=== PATIENT | female | born 1995 | race Caucasian/White ===

== ENCOUNTER 2016-11-26 10:35 | Inpatient (IN) | payer OTHER ==
[2016-11-26 14:21] VITALS: BMI 26.3
[2016-11-26 14:39] LABS: BASOPHIL 0.5 % (0-2.0); EOSINOPHIL 0.2 % (0-4.5); MCHC 33.1 g/dl (32.0-36.0); MEAN CELL VOLUME 84.5 fl (80-96); MEAN PLT VOLUME 10.4 fl (7.5-11.1); NEUTROPHILS 76.6 % (42.8-82.8); PLATELET COUNT 320 K/MM3 (134-434); RDW 14.8 % (11.6-15.6); WHITE BLOOD COUNT 13.5 K/mm3 (4.0-10.0)
[2016-11-26 14:56] LABS: INR 0.92 (0.82-1.09); PROTHROMBIN TIME (PATIENT) 10.1 SEC (9.98-11.88)
[2016-11-26 14:58] LABS: ACTIVATED PTT 25.9 SECONDS (26.9-34.4)
[2016-11-26 15:10] LABS: CALCIUM 9.2 mg/dL (8.5-10.1); COCKROFT - GAULT 181.9765; CREATININE 0.5 mg/dL (0.55-1.02)
--- NOTE | 2016-11-26 15:23 | HP ---
Past Medical History - Primary Care Physician PCP:: Andrew Weller - Admission Chief Complaint: 39 weeks, rom History of Present Illness: 21 yo f p0 wdc by mark 12/02/16 39.1 weeks. care at [facility] in [place], c/o leakage of fluid since 930am today, clear fluid, no fever, no chills, no bleeding, cx 1 cm 80 vx -2 mr , fhr cat 1, contraction q 2 to 3 min History Source: Patient Limitations to Obtaining History: No Limitations - Past Medical History ...: 1 ...Para: 0 ...Term: 0 ...: 0 ...Spon : 0 ...Induced : 0 ...Multiple Gestation: 0 ...LMP: 04/20/16 ... Weeks Gestation by Dates: 39.1 ...EDC by Dates: 12/02/16 - Past Surgical History Hx Myomectomy: No Hx Transabdominal Cerclage: No - Smoking History Smoking history: Never smoked Have you smoked in the past 12 months: No - Alcohol/Substance Use Hx Alcohol Use: No - Social History History of Recent Travel: No Home Medications - Allergies Allergies/Adverse Reactions: Allergies Allergy/AdvReac Type Severity Reaction Status Date / Time No Known Allergies Allergy Verified 11/26/16 15:10 - Home Medications Home Medications: Ambulatory Orders Vits #93/Iron Fum/FA [ Formula Tablet] 1 each PO DAILY Review of Systems - Review of Systems Constitutional: reports: No Symptoms Eyes: reports: No Symptoms HENT: reports: No Symptoms Neck: reports: No Symptoms Cardiovascular: reports: No Symptoms Respiratory: reports: No Symptoms Gastrointestinal: reports: No Symptoms Genitourinary: reports: No Symptoms Breasts: reports: No Symptoms Reported Musculoskeletal: reports: No Symptoms Integumentary: reports: No Symptoms Neurological: reports: No Symptoms Endocrine: reports: No Symptoms Hematology/Lymphatic: reports: No Symptoms Psychiatric: reports: No Symptoms Physical Exam - Maternity Vital Signs: Vital Signs Temperature 97.9 F 11/26/16 14:03 Pulse Rate 95 H 11/26/16 14:03 Respiratory Rate 20 11/26/16 14:03 Blood Pressure 129/70 11/26/16 14:03 O2 Sat by Pulse Oximetry (%) Constitutional: Yes: Well Nourished, No Distress, Calm Eyes: Yes: WNL, Conjunctiva Clear, EOM Intact HENT: Yes: WNL, Atraumatic, Normocephalic Neck: Yes: WNL, Supple, Trachea Midline Cardiovascular: Yes: WNL, Regular Rate and Rhythm Breast(s): Yes: WNL - Abdominal Exam/OB Fundal Height: 40 Number of Fetuses: Single Presentation: Vertex Contractions: Yes Regularity: Regular Intensity: Mod/Strong Monitor Mode: External Heart Rate Location: [facility] Category: I Accelerations: Uniform Decelerations: None - Vaginal Exam/OB Vaginal Bleediing: No Speculum Exam: Yes Dilatation (cm): 1 cm Effacement (%): 80 Amniotic Membrane Status: Ruptured Nitrazine Test: Positive Presentation: Vertex/Position Station: -2 - Physical Exam Musculoskeletal: Yes: Back Pain Deep Tendon Reflex Grade: Normal +2 Psychiatric: Yes: WNL - Labs Lab Results: CBC, BMP 11/26/16 14:28 11/26/16 14:28 Hemorrhage Risk Assessment - Risk Factors Risk Score: 0 Risk Level: Low Risk Problem List - Problems (1) with 39 completed weeks gestation Code(s): Z3A.39 - 39 WEEKS GESTATION OF (2) membrane rupture Code(s): BJK3279 - (3) Labor established Code(s): [id number] - Assessment/Plan admit, heart monitoring , GBS negative .pitocin rba explained , if contraction are not regular
[2016-11-26] MEDS ORDERED: BUTORPHANOL TARTRATE 1 MG/ML VIAL IVPUSH ONE (15:35)
[2016-11-26] MEDS ORDERED: OXYTOCIN 15 UNITS/ LR 250 ML 250 ML IVPB SCH (15:45)
[2016-11-26] MEDS ORDERED: DEXTROSE 5%-LACTATED RINGERS 1,000 ML IV SCH ×2 (17:15→22:30)
--- NOTE | 2016-11-26 19:50 | PN ---
Progress Note (short form) - Note Progress Note: cx 1 cm post , vx -3 mr, fhr act 1 with variable decel with contraction Problem List - Problems (1) with 39 completed weeks gestation Code(s): Z3A.39 - 39 WEEKS GESTATION OF (2) membrane rupture Code(s): KLA5919 - (3) Labor established Code(s): ESY9170 -
--- NOTE | 2016-11-26 21:22 | PN ---
Progress Note (short form) - Note Progress Note: cx 1 cm post -3 , contraction regular, no dilation, head high advised c/s rba discussed Problem List - Problems (1) with 39 completed weeks gestation Code(s): Z3A.39 - 39 WEEKS GESTATION OF (2) membrane rupture Code(s): [id number] - (3) Labor established Code(s): [id number] -
[2016-11-26] MEDS ORDERED: BENZOCAINE 28 GM HEMORRHOIDAL OINTMENT PR PRN (22:21)
[2016-11-26] MEDS ORDERED: METHYLERGONOVINE MALEATE 0.2 MG/1 ML AMP IM PRN (22:21)
[2016-11-26] MEDS ORDERED: diphenhydrAMINE HCL 25 MG CAPSULE (FP) PO PRN (22:21)
[2016-11-26] MEDS ORDERED: WITCH HAZEL 50% (TUCKS) 40 PAD/JAR PAD TP PRN (22:21)
[2016-11-26] MEDS ORDERED: BENZOCAINE 20% 57 GM BOTTLE TP PRN (22:21)
[2016-11-26] MEDS ORDERED: OXYTOCIN 20 UNITS in 0.9% NS 1,000 ML IV SCH (22:30)
[2016-11-26] MEDS ORDERED: ONDANSETRON 4 MG/2 ML VIAL IVPB PRN (22:39)
[2016-11-27] MEDS: CEFAZOLIN (PRE-DOCKED) 50 ML IVPB SCH ×2 (02:00→09:20)
[2016-11-27] MEDS ORDERED: OXYTOCIN 20 UNITS in 0.9% NS 1,000 ML IV ONE (02:00)
[2016-11-27] MEDS: IBUPROFEN 800 MG/8 ML IJ IVPB PRN ×2 (03:00→11:38)
[2016-11-27 07:30] LABS: BASOPHIL 0.2 % (0-2.0); EOSINOPHIL 0.1 % (0-4.5); MCH 27.8 pg (25.7-33.7); MCHC 32.6 g/dl (32.0-36.0); MEAN CELL VOLUME 85.3 fl (80-96); MEAN PLT VOLUME 10.4 fl (7.5-11.1); NEUTROPHILS 75.8 % (42.8-82.8); PLATELET COUNT 249 K/MM3 (134-434); RDW 14.8 % (11.6-15.6); WHITE BLOOD COUNT 15.3 K/mm3 (4.0-10.0)
--- NOTE | 2016-11-27 08:36 | PN ---
Progress Note, Physician Chief Complaint: Pt. still in bed with boston in place. Pain controlled, no MOLINA. No anesthesia complaints. - Current Medication List Current Medications: Active Medications Acetaminophen (Tylenol -) 650 mg PO Q4H PRN PRN Reason: FEVER OR PAIN Benzocaine (Americaine Ointment -) 1 applic RI PRN PRN PRN Reason: PAIN Benzocaine (Americaine 20% [place] -) 1 spray TP PRN PRN PRN Reason: PAIN Bisacodyl (Dulcolax Suppository -) 10 mg RC PRN PRN PRN Reason: CONSTIPATION Diphenhydramine HCl (Benadryl -) 25 mg PO Q8H PRN PRN Reason: FOR ITCHING Diphenhydramine HCl (Benadryl Injection -) 25 mg IVPUSH Q4H PRN PRN Reason: Pruritis Oxytocin/Lactated Ringer's (Lactated Ringer+ 15 Units Pitocin) 250 mls @ 1 mls/ hr IVPB ASDIR HEIDI; 0.06 UNIT/HR PRN Reason: Protocol Last Titration: 11/26/16 20:30 Dose: 0 unit/hr Dextrose/Lactated Ringer's (D5-Lr -) 1,000 mls @ 125 mls/hr IV ASDIR HEIDI Last Admin: 11/26/16 15:45 Dose: 125 mls/hr Cefazolin Sodium (Ancef 1gm Ivpb (Pre-Docked)) 50 mls @ 100 mls/hr IVPB Q8H-IV HEIDI Stop: 11/27/16 10:29 Last Admin: 11/27/16 02:00 Dose: 100 mls/hr Dextrose/Lactated Ringer's (D5-Lr -) 1,000 mls @ 125 mls/hr IV ASDIR HEIDI Oxytocin/Sodium Chloride (Normal Saline+20 Units Oxytocin -) 1,000 mls @ 125 mls/hr IV ASDIR ONE Stop: 11/27/16 09:59 Last Admin: 11/27/16 02:00 Dose: 125 mls/hr Ibuprofen (Motrin -) 600 mg PO Q4H PRN PRN Reason: PAIN Ibuprofen (Caldolor Injection -) 800 mg IVPB Q6H PRN PRN Reason: PAIN Stop: 11/27/16 10:22 Last Admin: 11/27/16 03:00 Dose: 800 mg Methylergonovine Maleate (Methergine Injection -) 0.2 mg IM Q4H PRN PRN Reason: EXCESSIVE BLEEDING Oxycodone HCl (Roxicodone -) 5 mg PO Q4H PRN PRN Reason: PAIN LEVEL 1-5 Oxycodone HCl (Roxicodone -) 10 mg PO Q4H PRN PRN Reason: PAIN LEVEL 6-10 Senna/Docusate Sodium (Pericolace -) 2 tablet PO HS PRN PRN Reason: CONSTIPATION Simethicone (Mylicon -) 80 mg PO Q4H PRN PRN Reason: GAS Witch Angie/Glycerin (Tucks Pads -) 1 pad TP PRN PRN PRN Reason: PAIN - Objective Vital Signs: Vital Signs Temperature 98.5 F 11/27/16 07:00 Pulse Rate 81 11/27/16 07:42 Respiratory Rate 16 11/27/16 07:42 Blood Pressure 105/51 11/27/16 07:42 O2 Sat by Pulse Oximetry (%) 99 11/26/16 23:20 Constitutional: Yes: Well Nourished, No Distress, Calm Musculoskeletal: Yes: WNL Neurological: Yes: WNL, Alert, Oriented ...Motor Strength: WNL Labs: CBC, BMP 11/27/16 05:35 11/26/16 14:28 INR, PTT INR 0.92 (0.82-1.09) 11/26/16 14:28 Assessment/Plan POD#1 s/p under spinal with duramorph. Doing well. D/C from anesthesia care once she voids and ambulates.
--- NOTE | 2016-11-27 08:44 | OP ---
DATE OF OPERATION: 11/26/2016 PREOPERATIVE DIAGNOSES: at 39 weeks, ruptured membrane, labor, Pitocin stimulation, failure to dilate. POSTOPERATIVE DIAGNOSES: at 39 weeks, ruptured membrane, labor, Pitocin stimulation, failure to dilate, occiput posterior, cord around the neck x1. PROCEDURE: Primary low-segment transverse section. SURGEON: Geno Weller MD MARKETING ADMIN: PINO Coombs ANESTHESIA: Spinal. ANESTHESIOLOGIST: . ESTIMATED BLOOD LOSS: 500 mL. OPERATIVE NOTE: The patient was taken to the operating room. Under adequate spinal anesthesia, abdomen and perineum were prepped and draped. Pfannenstiel abdominal skin incision was made. Abdominal wall was cut layer by layer until peritoneum was exposed and incised. Upon entering the abdominal cavity, lower uterine segment was identified and uterovesical fold of peritoneum established. Bladder was pushed down. Then, with the low blade of the Ian retractor in the pelvis, a low-transverse incision was made. Incision extended laterally. Amniotic sac was entered. Head was in occiput posterior position. Cord around the neck x1 reduced and then live baby boy was delivered without any difficulty. Placenta was delivered manually. Uterine cavity was cleared of all remaining tissue. Uterine incision was closed in 2 layers, 1st layer with 0 Biosyn continuous suture, the 2nd layer with 0 Biosyn imbricating the 1st layer. Bladder flap was closed with 0 Biosyn continuous suture. Both tubes and ovaries were checked, were normal. No active bleeding was seen. All the lap packs, sponge, and instrument counts were correct. Then, peritoneum was closed with 0 Biosyn continuous suture. Muscles were brought together with interrupted suture of 0 Biosyn. Fascia was closed with 0 Biosyn continuous suture, subcutaneous fat with interrupted suture of 0 Biosyn, and the skin was closed with jeremie. Patient tolerated procedure well. Left the OR in good condition. GENO WELLER M.D. /[id number]
[2016-11-27] MEDS: IBUPROFEN 600 MG TABLET (FP) PO PRN ×2 (16:44→21:03)
[2016-11-27] MEDS: ACETAMINOPHEN 325 MG TABLET (FP) PO PRN ×2 (16:45→21:02)
[2016-11-27] MEDS: SIMETHICONE 80 MG TAB.CHEW (FP) PO PRN ×2 (16:45→21:04)
--- NOTE | 2016-11-27 20:35 | PN ---
Progress Note (short form) - Note Progress Note: pod 1 s/p c/s abdomen soft , nontender, no cva incision dry, clean no calf tenderness CBC, BMP 11/27/16 05:35 11/26/16 14:28 Last Vital Signs Temp Pulse Resp BP Pulse Ox 98.5 F 91 H 18 101/75 99 11/27/16 17:26 11/27/16 17:26 11/27/16 17:26 11/27/16 17:26 11/26/16 23:20 impression pod 1 afebrile plan ambulate, advance diet Problem List - Problems (1) with 39 completed weeks gestation Code(s): Z3A.39 - 39 WEEKS GESTATION OF (2) membrane rupture Code(s): [id number] - (3) Labor established Code(s): [id number] -
[2016-11-27] MEDS ORDERED: BISACODYL 10 MG SUPP.RECT RC PRN (22:21)
[2016-11-28] MEDS: oxyCODONE HCL 5 MG TABLET PO PRN ×5 (00:09→20:38)
[2016-11-28] MEDS: ACETAMINOPHEN 325 MG TABLET (FP) PO PRN ×4 (05:24→20:38)
[2016-11-28] MEDS: SIMETHICONE 80 MG TAB.CHEW (FP) PO PRN ×4 (05:24→20:38)
[2016-11-28] MEDS: IBUPROFEN 600 MG TABLET (FP) PO PRN (08:35)
--- NOTE | 2016-11-28 08:55 | PN ---
Progress Note (short form) - Note Progress Note: pod 2 doing well, ambulating, passing gas CBC, BMP 11/27/16 05:35 11/26/16 14:28 Last Vital Signs Temp Pulse Resp BP Pulse Ox 98.3 F 94 H 18 125/70 99 11/28/16 02:07 11/27/16 21:00 11/28/16 08:00 11/27/16 21:00 11/26/16 23:20 abdomen soft, no distension, no cva uterus firm lochia mild no calf tenderness plan ambulate , cbc in am Problem List - Problems (1) with 39 completed weeks gestation Code(s): Z3A.39 - 39 WEEKS GESTATION OF (2) membrane rupture Code(s): [id number] - (3) Labor established Code(s): [id number] -
[2016-11-28] MEDS ORDERED: SENNOSIDES/DOCUSATE COMBO (SENNA PLUS) TABLET (UD) PO PRN (22:00)
[2016-11-29 01:30] VITALS: TEMP 98.9
[2016-11-29] MEDS: oxyCODONE HCL 5 MG TABLET PO PRN ×2 (01:49→06:56)
[2016-11-29] MEDS: ACETAMINOPHEN 325 MG TABLET (FP) PO PRN ×2 (01:49→06:55)
[2016-11-29] MEDS: SIMETHICONE 80 MG TAB.CHEW (FP) PO PRN ×2 (01:50→06:56)
[2016-11-29 08:32] LABS: BASOPHIL 0.2 % (0-2.0); EOSINOPHIL 1.4 % (0-4.5); MCH 27.9 pg (25.7-33.7); MCHC 32.5 g/dl (32.0-36.0); MEAN PLT VOLUME 9.8 fl (7.5-11.1); NEUTROPHILS 68.7 % (42.8-82.8); PLATELET COUNT 297 K/MM3 (134-434); RDW 14.9 % (11.6-15.6); WHITE BLOOD COUNT 12.8 K/mm3 (4.0-10.0)
[2016-11-29 09:33] VITALS: BP 117/76; PULSE 84
--- NOTE | 2016-11-29 10:45 | DS ---
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 Vital Signs: Vital Signs Temperature 98.9 F 11/29/16 09:27 Pulse Rate 84 11/29/16 09:27 Respiratory Rate 18 11/29/16 09:27 Blood Pressure 117/76 11/29/16 09:27 O2 Sat by Pulse Oximetry (%) 99 11/26/16 23:20 Constitutional: Yes: Well Nourished, No Distress, Calm Eyes: Yes: WNL, Conjunctiva Clear, EOM Intact HENT: Yes: WNL, Atraumatic, Normocephalic Neck: Yes: WNL, Supple, Trachea Midline Cardiovascular: Yes: WNL, Regular Rate and Rhythm Respiratory: Yes: WNL, Regular, CTA Bilaterally Gastrointestinal: Yes: WNL ...Rectal Exam: Yes: WNL Renal/: Yes: WNL ....Post : Yes: Uterus firm, Uterus non-tender, Slight lochia rubra Breast(s): Yes: WNL Musculoskeletal: Yes: WNL Extremities: Yes: WNL Integumentary: Yes: WNL Wound/Incision: Yes: Clean/Dry, Well Approximated, [place] Intact Neurological: Yes: WNL, Alert, Oriented ...Motor Strength: WNL Psychiatric: Yes: WNL, Alert, Oriented Labs: CBC, BMP 11/29/16 05:35 11/26/16 14:28 Delivery - Delivery Section: Primary, Low Flap Transverse (no complication) Type of Anesthesia: Spinal Episiotomy/Laceration: None EBL (cc): 500 Delivery, Single - Stages of Labor Date 1st Stage Initiatied: 11/26/16 Time 1st Stage Initiated: 17:30 Date of Delivery: 11/26/16 Time of Delivery: 21:55 Time Placenta Delivered: 21:56 Placenta: Yes: Spontaneous - Condition of Container Coordinator/President Of [place] Present: No Infant Gender: Male Weight: 7 lb 9 oz Position: OT Total Hours ROM (Hrs/Mins): [id number] - 1 Minute Total Score: 9 5 Minutes Total Score: 9 - [place] Feeding Plan Initial Plan: Exclusive throughout hospitalization Discharge Summary Current Active Problems membrane rupture (Acute) Labor established (Acute) with 39 completed weeks gestation (Acute) Condition: Good - Instructions Diet, Activity, Other Instructions: regular diet, follow up [facility] care 1 week Referrals: Andrew Weller MD [Staff Physician] - - Home Medications Comprehensive Discharge Medication List: Ambulatory Orders Vits #93/Iron Fum/FA [ Formula Tablet] 1 each PO DAILY Ibuprofen [Motrin -] 600 mg PO QID #28 tablet 11/28/16 Oxycodone HCl/Acetaminophen [Percocet 5-325 mg Tablet] 1 tab PO Q6H #20 tablet MDD 4 11/29/16
--- NOTE | 2016-12-02 15:02 | PATH ---
Surgical Pathology Report Patient Name: ROSSY DUPREE Med. Rec. 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 Specimen(s) Received PLACENTA Clinical History , failure to progress, PROM, 39.1 weeks Primary c/section Final Diagnosis PLACENTA, DELIVERY: FOCALLY DISRUPTED THIRD TRIMESTER PLACENTA WITH FOCAL INFARCT AND FIBRIN THROMBUS, MILD TO FOCALLY MODERATE INCREASE IN PREVILLOUS, PERIVILLOUS, AND PRECHORIONIC FIBRIN DEPOSITION, THREE VESSEL UMBILICAL CORD, AND PLACENTAL MEMBRANES WITH FOCAL AMNION HYPERPLASIA. Electronically Signed Law Boone M.D. Gross Description The specimen is received fresh, labeled "placenta" and is a 453 gram, 17.0 x 13.5 x 2.7 cm placenta with attached membranes and umbilical cord. The attached membranes are mondragon, translucent with focal opacities and insert marginally. The umbilical cord measures 38 cm in length and averages 1 cm in diameter. The cord inserts eccentrically, 3.5 cm. to the nearest margin. No true knots or strictures are identified. Cut surface of the umbilical cord reveals 3 vessels. The surface is black-blue with fibrin deposition and appropriate caliber vessels. The maternal surface is red-brown with focal defects. Sectioning reveals 2 mondragon intraparenchymal lesions measuring 1.0 and 1.3 cm in greatest dimension. The remaining placental parenchyma is red-brown and spongy. Machinist Apprentice Wood sections are submitted in 5 cassettes as follows: 1- membrane rolls and umbilical cord; 2-3- lesions; 4 -5-full thickness sections of placenta. /12/01/201612/01/2016
== END 2016-11-29 13:40 | disposition home or self-care (01) | DRG 540 ==
LOC: JDEL 10:35 → JLDR 13:30 → J3W 11-27 12:19
PROVIDERS: ADMIT Obstetrics & Gynecology; ATTEND Obstetrics & Gynecology
PROC: 10D00Z1 Extraction of Products of Conception, Low, Open Approach (ICD-10-PCS; principal; 2016-11-26)
DX: O62.0 Primary inadequate contractions (principal); O69.81X0 Labor and delivery complicated by cord around neck, without compression, not applicable or unspecified; Z3A.39 39 weeks gestation of pregnancy; Z37.0 Single live birth
CPT/HCPCS: 36415; 76819-TC; 80048; 85025; 85610; 85730; 86593; 86850; 86900; 86901; 88307-TC